=== PATIENT | male | born 1950 | race Caucasian/White ===

== ENCOUNTER 2019-06-23 21:41 | Inpatient (IN) ==
[2019-06-23 23:25] LABS: Basophils % 0.1 %; Hematocrit 39.2 % (37.5-50.1); Hemoglobin 13.7 g/dL (12.9-16.9); Immature Granulocytes % 0.4 % (0-4); Lymphocytes # 0.4 K/mcL (0.6-4.6); Lymphocytes % 3.2 %; Mean Corpuscular HGB Conc 34.9 g/dL (31.6-35.5); Mean Corpuscular Hemoglobin 33.3 pg (28.0-33.3); Mean Corpuscular Volume 95.1 fL (83.0-100.0); Mean Platelet Volume 12.8 fL (9.4-12.4); Monocytes # 0.5 K/mcL (0.0-1.3); Monocytes % 4.5 %; Neutrophils # 10.1 K/mcL (1.6-8.9); Platelet Count 148 K/mcL (140-400); Red Blood Count 4.12 M/mcL (4.19-5.50); Red Cell Distribution Width 12.4 % (11.5-14.5); Segmented Neutrophils % 91.8 %
[2019-06-23 23:30] LABS: INR 1.5; Prothrombin Time 17.5 Seconds (9.4-12.1)
[2019-06-23 23:39] LABS: Bilirubin,Urine Moderate (Negative); Blood,Urine Large (Negative); Clarity,Urine Cloudy (Clear); Color,Urine Red (Yellow); Glucose,Urine (UA) 250 mg/dL (Normal); Ketones,Urine Trace mg/dL (Negative); Leukocyte Esterase,Urine Small (Negative); Nitrite,Urine Positive (Negative); Protein,Urine >=300 mg/dL (Neg-Trace); Specific Gravity,Urine 1.029 (1.010-1.025); Urobilinogen,Urine Normal (Normal)
[2019-06-23 23:44] LABS: Albumin 4.3 g/dL (3.5-5.7); Albumin/Globulin Ratio 1.4 (1.1-2.2); Bilirubin,Total 1.1 mg/dL (0.3-1.0); Calcium 9.2 mg/dL (8.6-10.3); Potassium 4.5 mEq/L (3.5-5.1); Total Protein 7.3 g/dL (6.4-8.9)
[2019-06-23] MEDS: *HR* FentaNYL (PF) 100 MCG/2 ML VIAL IM ONE (23:56)
[2019-06-24] MEDS ORDERED: cefTRIAXone 1,000 MG in Water for inj. (sterile) 10 ML IVP ONE (00:09)
[2019-06-24] MEDS: *HR* FentaNYL (PF) 100 MCG/2 ML VIAL IM ONE (02:24)
[2019-06-24] MEDS ORDERED: Naloxone 0.4 MG/ML INJ IVP PRN (05:46)
[2019-06-24] MEDS ORDERED: cefTRIAXone 1,000 MG in Water for inj. (sterile) 10 ML IVP SCH (09:00)
[2019-06-24 09:06] LABS: Hematocrit 40.5 % (37.5-50.1); Hemoglobin 14.1 g/dL (12.9-16.9); Mean Corpuscular HGB Conc 34.8 g/dL (31.6-35.5); Mean Corpuscular Hemoglobin 33.9 pg (28.0-33.3); Mean Corpuscular Volume 97.4 fL (83.0-100.0); Mean Platelet Volume 12.4 fL (9.4-12.4); Platelet Count 160 K/mcL (140-400); Red Blood Count 4.16 M/mcL (4.19-5.50); Red Cell Distribution Width 12.7 % (11.5-14.5)
[2019-06-24 09:26] LABS: Calcium 9.3 mg/dL (8.6-10.3); INR 1.5; Prothrombin Time 16.8 Seconds (9.4-12.1)
[2019-06-24 10:30] LABS: White Blood Count 19.1 K/mcL (4.3-11.1)
[2019-06-24] MEDS ORDERED: Acetaminophen 325 MG TABLET PO PRN (15:06)
[2019-06-25 04:07] LABS: Hematocrit 39.5 % (37.5-50.1); Hemoglobin 13.3 g/dL (12.9-16.9); Immature Granulocytes % 0.4 % (0-4); Mean Corpuscular HGB Conc 33.7 g/dL (31.6-35.5); Mean Corpuscular Hemoglobin 33.6 pg (28.0-33.3); Mean Corpuscular Volume 99.7 fL (83.0-100.0); Mean Platelet Volume 12.6 fL (9.4-12.4); Monocytes % 13.9 %; Platelet Count 138 K/mcL (140-400); Red Blood Count 3.96 M/mcL (4.19-5.50); Red Cell Distribution Width 12.8 % (11.5-14.5); Segmented Neutrophils % 78.6 %; White Blood Count 14.4 K/mcL (4.3-11.1)
[2019-06-25 04:08] LABS: Basophils % 0.1 %; Neutrophils # 11.4 K/mcL (1.6-8.9)
[2019-06-25 04:17] LABS: INR 1.4; Prothrombin Time 16.1 Seconds (9.4-12.1)
[2019-06-25 04:27] LABS: Calcium 9.5 mg/dL (8.6-10.3); Potassium 4.3 mEq/L (3.5-5.1)
[2019-06-25] MEDS: *HR* Amiodarone 200 MG TABLET PO SCH (10:08)
[2019-06-26 08:09] VITALS: BP 127/80
[2019-06-26] MEDS: *HR* Amiodarone 200 MG TABLET PO SCH (08:58)
== END 2019-06-26 10:08 | disposition home or self-care (01) | DRG 920 ==
LOC: CDU 21:41 → EMEROOARM 21:41 → SUATTDRO 06-24 01:18 → OBSVTOIN 06-24 01:18 → CDU 06-24 01:46 → 3BNU 06-24 18:37
PROVIDERS: ADMIT Family Medicine; ATTEND Student in an Organized Health Care Education/Training Program